=== PATIENT | male | born 1985 | race Caucasian/White ===

== ENCOUNTER 2016-10-15 08:16 | Emergency (ER) | payer OTHER ==
--- NOTE | 2016-10-15 08:32 | PDOC ---
History of Present Illness - General Chief Complaint: Shortness of Breath Stated Complaint: SHORTNESS OF BREATH Time Seen by Provider: 10/15/16 08:18 History Source: Patient Exam Limitations: No Limitations - History of Present Illness Initial Comments: 10/15/16 08:18 This patient is a 31 yo M presenting to the ER with a complaint of shortness of breath Patient states his history of present illness began approximately 5 months ago when he had an episode of shortness of breath. He was seen by his primary care physician who started some cord, possibly an antibiotic. At that time and actually was not done. History of the diagnosis was bronchitis, symptoms completely resolved after therapy. He has been a subglottic since then. Approximately 3 weeks ago he noted intermittent shortness of breath which has progressively worsened over the past 3 weeks. His symptoms are not associated with fevers or chills. He's had no cough, no wheezing. Shortness of breath is associated with what he describes as chest tightness in the center of the chest and radiating up to the lower throat. He would rate his discomfort as 5/10. No radiation to the arms or back. Patient states there is no sign of the day that his symptoms are worse. He has noted that his shortness of breath worsens with exertion. He's had no lower extremity edema. No recent travel, no long bus or train rides. Patient denies ill contacts He works at the [employer], is exposed to the birds at the zoo, not exposed to primates His symptoms are also associated with a sensation of dizziness/lightheadedness He denies nausea, vomiting, diarrhea PMH: Denies PSH: Denies Meds: Denies ALL: Denies Social: denies tobacco use or drug use, works at the [employer] GENERAL/CONSTITUTIONAL: No: fever, chills, weakness, loss of appetite. HEAD, EYES, EARS, NOSE AND THROAT: No: change in vision, ear pain, discharge, sore throat, throat swelling. CARDIOVASCULAR: Yes: chest discomfort No: lightheadedness, palpitations, syncope RESPIRATORY: Yes: shortness of breath No: cough, wheezing, hemoptysis, stridor. GASTROINTESTINAL: No: nausea, vomiting, diarrhea, abdominal pain GENITOURINARY: No: dysuria, hematuria, frequency, urgency, flank pain. MUSCULOSKELETAL: No: back pain, neck pain, joint pain, muscle swelling or pain SKIN AND BREASTS: No: lesions, pallor, rash or easy bruising. NEUROLOGIC: Yes: dizziness, lightheadedness No: headache, paresthesias, weakness ENDOCRINE: No: unexplained weight gain or loss HEMATOLOGIC/LYMPHATIC: No: anemia, easy bleeding, swelling nodes. GENERAL: The patient is in no acute distress. HEAD: Normal with no signs of trauma. EYES: PERRLA, EOMI, sclera anicteric, conjunctiva clear. ENT: Ears normal, nares patent, oropharynx clear without exudates. Moist mucous membranes. NECK: Normal range of motion, supple without lymphadenopathy, JVD, or masses. LUNGS: Breath sounds equal, clear to auscultation bilaterally. No wheezes, and no crackles. HEART: Regular rate and rhythm, normal S1 and S2 without murmur, rub or gallop. ABDOMEN: Soft, nontender, normoactive bowel sounds. No guarding, no rebound. No masses palpable. EXTREMITIES: Normal range of motion, no edema. No clubbing or cyanosis. No erythema, or tenderness. NEUROLOGICAL: Cranial nerves II through XII grossly intact. Normal speech. No focal neurological deficits. MUSCULOSKELETAL: Back non-tender to palpation, no CVA tenderness SKIN: Warm, Dry, normal turgor, no rashes or lesions noted. 10/15/16 08:36 10/15/16 08:37 Past History - Past Medical History Allergies/Adverse Reactions: Allergies Allergy/AdvReac Type Severity Reaction Status Date / Time No Known Allergies Allergy Verified 10/15/16 08:18 Home Medications: Ambulatory Orders NK [No Known Home Medication] 10/15/16 - Immunization History Immunization Up to Date: Yes - Psycho/Social/Smoking Cessation Hx Anxiety: No Suicidal Ideation: No Smoking History: Never smoked Hx Alcohol Use: Yes (OCCASIONAL) Substance Use Type: None Heart Score/ECG Review #1 ECG reviewed & interpreted by me at: 08:41 General ECG Interpretation: Sinus Rhythm, Normal Rate, Normal Intervals, No acute ischemic changes ED Treatment Course - LABORATORY CBC & Chemistry Diagram: 10/15/16 08:49 10/15/16 08:49 Medical Decision Making - Medical Decision Making 10/15/16 08:41 Patient's vitals are stable. Will do labs, chest x-ray, EKG. Will send a d-dimer to rule out PE. Patient may need a CT scan. Will reassess 10/15/16 09:38 Laboratory Tests 10/15/16 10/15/16 10/15/16 08:49 08:49 08:49 WBC 5.8 D Hgb 15.9 Hct 46.8 Plt Count 232 Sodium 135 L Potassium 3.7 Chloride 104 Carbon Dioxide 24 BUN 17 Creatinine 0.8 Random Glucose 96 Alkaline Phosphatase 58 D Troponin I < 0.03 L 10/15/16 09:54 10/15/16 10:58 Laboratory Tests 10/15/16 10/15/16 08:49 08:49 D-Dimer < 200 Troponin I < 0.03 L 10/15/16 11:45 Labs all normal CXR nml Pt mother requested that I speak with Dr Valadez in order to obtain pulmonary follow up Call placed to [facility] 10/15/16 12:[address] Valadez He will see this patient on saturday He does not recommend Symbicort or pred at this time Pt eating lunch Clinical impression: shortness of breath *DC/Admit/Observation/Transfer Diagnosis at time of Disposition: Dyspnea, unspecified Qualifiers: Dyspnea type: shortness of breath Qualified Code(s): R06.02 - Shortness of breath - Discharge Dispostion Disposition: HOME Condition at time of disposition: Stable Admit: No - Referrals Referrals: Jorje Barker MD [Staff Physician] - - Patient Instructions Printed Discharge Instructions: DI for Shortness of Breath Additional Instructions: Mr. Crouch, Thank you for coming to the ED today. Please follow up with your primary. Please follow up with pulmonary on Saturday. Please review your studies. Please return to the ED if you experience fever, chills, nausea, sweating, chest pain, or headache. - Post Discharge Activity Work/School Note: Back to Work
[2016-10-15 08:38] VITALS: TEMP 97.6; BMI 25.5
[2016-10-15 09:04] LABS: BASOPHIL 2.3 % (0-2.0); EOSINOPHIL 1.6 % (0-4.5); MCH 29.7 pg (25.7-33.7); MCHC 33.9 g/dl (32.0-35.9); MEAN CELL VOLUME 87.6 fl (80-96); MEAN PLT VOLUME 7.8 fl (7.5-11.1); NEUTROPHILS 55.6 % (42.8-82.8); PLATELET COUNT 232 K/MM3 (134-434); RDW 12.5 % (11.9-15.9); WHITE BLOOD COUNT 5.8 K/mm3 (4.0-10.8)
[2016-10-15 09:22] LABS: ALBUMIN 4.7 g/dl (3.5-5.0); ALK PHOS 58 U/L (32-92); ANION GAP 7 (8-16); BILIRUBIN,TOTAL 1.6 mg/dl (0.2-1.0); CALCIUM 9.7 mg/dl (8.4-10.2); CO2 24 mmol/L (22-28); CREATININE 0.8 mg/dl (0.6-1.3); GLUCOSE,RANDOM 96 mg/dl (74-106); SGOT/AST 23 U/L (10-42); SGPT/ALT 21 U/L (10-40)
[2016-10-15 11:44] VITALS: BP 121/63; PULSE 72
--- NOTE | 2016-10-16 14:02 | EKG ---
Test Reason : Blood Pressure : / mmHG Vent. Rate : 057 BPM Atrial Rate : 057 BPM P-R Int : 134 ms QRS Dur : 092 ms QT Int : 440 ms P-R-T Axes : 071 065 051 degrees QTc Int : 428 ms SINUS BRADYCARDIA EARLY REPOLARIZATION NO PREVIOUS ECGS AVAILABLE REPEAT EKG IF CLINICALLY INDICATED Confirmed by MIRLANDE JONES MD ([id number]) on 10/16/2016 2:01:31 PM Referred By: JESU CHAIDEZ Confirmed By:MIRLANDE JONES MD
== END 2016-10-15 12:15 | disposition home or self-care (01) ==
LOC: FER 08:16
DX: R06.02 Shortness of breath (principal)
CPT/HCPCS: 36415; 71010-TC; 80053; 84484; 85025; 85379; 93005; 99284-25